=== PATIENT | male | born 1955 | race Caucasian/White ===

== ENCOUNTER 2016-07-22 08:35 | Emergency (ER) | payer BC ==
[~2016-07-22] VITALS: Ht 190.5 cm; Wt 108.9 kg
[2016-07-22 09:19] LABS: BASOPHIL % 0.2 % (0-2); PLATELET COUNT 207 x10^3mcL (130-400); RED CELL DISTRIBUTION WIDTH 13.6 % (11.5-14.5)
[2016-07-22 09:23] LABS: CALCIUM 9.2 mg/dL (8.5-10.1); CARBON DIOXIDE 28.9 mmol/L (21-32); CHLORIDE SERUM 100 mmol/L (98-107); CREATININE SERUM 1.3 mg/dL (0.7-1.3); GFR1 > 60 mL/min; GLUCOSE SERUM 77 mg/dL (74-106); POTASSIUM SERUM 4.2 mmol/L (3.5-5.1); SODIUM SERUM 137 mmol/L (136-145)
[2016-07-22 09:27] LABS: ALBUMIN 4.4 g/dL (3.4-5.0); ALKALINE PHOSPHATASE 45 U/L (46-116); ALT/SGPT 63 U/L (16-63); AST/SGOT 33 U/L (15-37); BILIRUBIN TOTAL 0.76 mg/dL (0.20-1.00); CHOLESTEROL 128 mg/dL (<200); HDL CHOLESTEROL 64 mg/dL (40-60); LIPASE 140 IU/L (73-393); TOTAL PROTEIN, SERUM 8.1 g/dL (6.4-8.2); TRIGLYCERIDES 113 mg/dL (<150)
[2016-07-22 09:37] LABS: T3 TOTAL 0.92 ng/mL
[2016-07-22 09:38] LABS: FREE T4 1.02 ng/dL (0.76-1.46); FREE THYROXINE INDEX 2.6 ug/dL (1.4-4.5)
[2016-07-22 12:20] VITALS: BP 130/99
== END 2016-07-22 12:20 | disposition home or self-care (01) ==
LOC: ED 08:35
PROVIDERS: Specialist
DX: M54.5 Low back pain (principal); I10 Essential (primary) hypertension
CPT/HCPCS: 83880; 84439; J3490; J7030; Q0092; Q9967

== ENCOUNTER 2018-10-25 16:20 | Emergency (ER) | payer BC ==
[~2018-10-25] VITALS: Ht 190.5 cm; Wt 106.6 kg
[2018-10-25 16:33] VITALS: Ht 190.5 cm; Wt 106.6 kg
[2018-10-25 17:32] LABS: BASOPHIL % 0.5 % (0-2); PLATELET COUNT 187 x10^3mcL (130-400); RED CELL DISTRIBUTION WIDTH 13.4 % (11.5-14.5)
[2018-10-25 18:25] LABS: CALCIUM 7.8 mg/dL (8.5-10.1); CARBON DIOXIDE 28.7 mmol/L (21-32); CREATININE SERUM 1.4 mg/dL (0.7-1.3); POTASSIUM SERUM 4.4 mmol/L (3.5-5.1)
[2018-10-25 18:30] LABS: BILIRUBIN TOTAL 0.5 mg/dL (0.20-1.00); TOTAL PROTEIN, SERUM 6.7 g/dL (6.4-8.2)
[2018-10-25 18:31] LABS: ALBUMIN 3.3 g/dL (3.4-5.0)
[2018-10-25 19:27] VITALS: BP 130/84
== END 2018-10-25 19:27 | disposition home or self-care (01) ==
LOC: ED 16:20
PROVIDERS: Emergency Medicine
DX: R42 Dizziness and giddiness (principal); E86.0 Dehydration; F10.10 Alcohol abuse, uncomplicated; I49.3 Ventricular premature depolarization; I10 Essential (primary) hypertension; J45.909 Unspecified asthma, uncomplicated
CPT/HCPCS: 82962; G0480; J2405; J7030; J8597; Q0092